=== PATIENT | female | born 1995 | race Caucasian/White ===

== ENCOUNTER 2017-05-17 08:11 | Inpatient (IN) ==
[2017-05-17] MEDS ORDERED: CEFAZOLIN PREMIX (MC ONLY) 2 GM/50 ML BAG IV ONE (08:37)
[2017-05-17] MEDS ORDERED: CITRIC ACID/SODIUM CITRATE 30ml PO ONE (08:37)
[2017-05-17] MEDS ORDERED: FAMOTIDINE PB 20 MG/50 ML BAG IV ONE (08:37)
[2017-05-17] MEDS ORDERED: LR 1,000 ML IV SCH (08:42)
[2017-05-17 08:55] VITALS: BMI 41.8
[2017-05-17] MEDS ORDERED: NOZIN NASAL SWAB NAS ONE (09:33)
[2017-05-17] MEDS: CEFAZOLIN 1 G INJECTION IVP ONE ×3 (09:39→13:26)
--- NOTE | 2017-05-17 09:49 | Anesthesia Preoperative Report ---
Anesthesia Preoperative Record - Date and Time Date: 05/17/17 Preoperative Diagnosis: Repeat C Section previous , Proposed Procedure: repeat csection NPO Since Date: 05/16/17 NPO Since Time: 23:00 Allergies/Adverse Reactions: Allergies Allergy/AdvReac Type Severity Reaction Status Date / Time No Known Drug Allergies Allergy Unknown Verified 05/05/12 12:34 - Vital Signs Height and Weight: Height 1.73 m Weight 124.738 kg Body Mass Index 41.8 - Medications Inpatient Medications: Current Medications Isopropyl Alcohol (Nozin Nasal Swab) 1 each FREEMAN 0600,1400,2200 ANA LAURA Home Medications: Home Medications Medication Instructions Recorded Confirmed Type Prenat 115/Iron Fum/Folic/Dss 1 tab PO DAILY 05/16/17 05/16/17 History [ 19 Tablet] - Medical History Cardiovascular: Reports: Hypertension (preclampsia ), Other (echocardiogram no problems, 4 months ago, due to and htn ) Gastrointestional: Reports: Morbid Obesity Other History: Reports: Now - Surgical History Reproductive Surgery/Treatment: Reports: Section Anesthesia Reactions: None Hx Family Anesthesia Reaction: No - Social History Smoking Status: Never smoker - Pertinent Findings Laboratory: CBC and BMP 05/17/17 09:09 EKG Rhythm: Normal Sinus Rhythm - Physical Exam Respiratory Exam: Present: lungs clear, bilateral breath sounds equal Cardiovascular Exam: Present: regular rate and rhythm, no murmur - Airway Assessment Mallampati Score: II TMD: 3 Fingerbreadths Neck Extension: good Overall Assessment: may be difficult mask vent, may be difficult intubation - ASA ASA Score: 3 - Plan Regional/Trunk Block: Spinal - Discussion Discussion: Discussed risks/options/alternatives of anesthesia and questions answered. Patient consents. Nursing pain assessment noted. Attestation Statement: Prior to the delivery of any anesthetic medication, I examined the patient, developed the plan, obtained the patient's consent and discussed the risk and benefits of the procedure with the patient/guardian.
[2017-05-17] MEDS ORDERED: MORPHINE SULFATE PF 5mg/10ml INJ (Duramorph) ONE (09:58)
[2017-05-17] MEDS ORDERED: OXYTOCIN 10 UNIT/ML INJECTION ONE ×2 (09:58→10:53)
[2017-05-17] MEDS ORDERED: EPHEDRINE 50mg/ml INJECTION ONE (09:58)
[2017-05-17] MEDS ORDERED: FentaNYL 100 MCG/2 ML INJECTION ONE (09:58)
[2017-05-17] MEDS ORDERED: SALINE FLUSH 10ml SYRINGE ONE (10:00)
[2017-05-17] MEDS: LR 1,000 ML IV SCH ×2 (10:35→10:51)
[2017-05-17] MEDS: OXYTOCIN DRIP 30 UNIT/500 ML ML IV SCH ×2 (10:38→13:30)
[2017-05-17] MEDS ORDERED: NALOXONE 2 MG/2 ML INJECTION PFS IVP PRN (10:46)
[2017-05-17] MEDS ORDERED: ONDANSETRON 4 MG/2 ML INJECTION ONE (10:51)
[2017-05-17] MEDS ORDERED: METOCLOPRAMIDE 10mg/2ml INJECTION ONE (10:52)
[2017-05-17] MEDS ORDERED: HYDROCORTISONE 2.5% CREAM 30gm RECTALLY PRN (11:34)
[2017-05-17] MEDS ORDERED: SALINE FLUSH 10ml SYRINGE IVF PRN (11:34)
[2017-05-17] MEDS ORDERED: ACETAMINOPHEN 500 MG TABLET PO PRN (11:34)
[2017-05-17] MEDS ORDERED: SIMETHICONE 80 MG CHEWABLE TABLET PO PRN (11:34)
[2017-05-17] MEDS ORDERED: OXYTOCIN DRIP 30 UNIT/500 ML ML IV SCH (11:34)
[2017-05-17] MEDS ORDERED: CALCIUM CARBONATE Chewable 500mg TABLET PO PRN (11:34)
[2017-05-17] MEDS: D5LR 1,000 ML IV SCH (11:51)
[2017-05-17] MEDS: SIMETHICONE 80 MG CHEWABLE TABLET PO SCH ×3 (13:09→23:49)
[2017-05-17] MEDS: IBUPROFEN 800 MG TABLET PO PRN ×2 (13:39→23:49)
[2017-05-17] MEDS: HYDROCODONE/APAP 5mg/325mg TABLET PO PRN ×2 (13:40→23:49)
[2017-05-17] MEDS ORDERED: NOZIN NASAL SWAB NAS SCH (14:00)
[2017-05-17] MEDS: DiphenhydrAMINE 25 MG CAPSULE PO PRN ×2 (16:59→23:48)
[2017-05-18] MEDS: HYDROCODONE/APAP 5mg/325mg TABLET PO PRN ×3 (04:15→16:32)
[2017-05-18] MEDS: DiphenhydrAMINE 25 MG CAPSULE PO PRN (06:18)
[2017-05-18] MEDS: D5LR 1,000 ML IV SCH ×2 (06:19→09:09)
[2017-05-18] MEDS: IBUPROFEN 800 MG TABLET PO PRN ×2 (08:03→16:32)
[2017-05-18] MEDS: DOCUSATE CALCIUM 240 MG CAPSULE PO SCH (08:04)
[2017-05-18] MEDS: SIMETHICONE 80 MG CHEWABLE TABLET PO SCH ×5 (08:05→22:30)
--- NOTE | 2017-05-18 11:14 | Operative Note ---
DATE OF OPERATION 05/17/2017 PREOPERATIVE DIAGNOSES 1. Term , previous . 2. Mild preeclampsia with proteinuria. POSTOPERATIVE DIAGNOSES 1. Term , previous - delivered. 2. Mild preeclampsia with proteinuria. PROCEDURE Repeat low transverse section. SURGEON Dr. Osorio. TRANSMISSION SYSTEMS OPERATOR Kota Goncalves, DO ANESTHESIA Spinal epidural. ANESTHESIOLOGIST Cecil Miles CRNA EBL 800 mL DESCRIPTION OF PROCEDURE Ms. Allison was brought to the OR and given regional analgesia to good effect. She was placed on the OR table in supine position with left lateral displacement. A Jean catheter was placed to dependent drain. The abdomen was prepped and draped in usual sterile fashion. A Pfannenstiel skin incision was made through the patient's prior scar and carried down to fascia. Fascia was incised transversely. Fascia was then bluntly and sharply dissected free of rectus muscles. The rectus muscles were bluntly divided. Peritoneum was tented up and entered sharply. This was extended vertically. The bladder blade was then inserted. Vesicouterine fold of peritoneum was tented up and incised transversely and a bladder flap was bluntly created. The bladder blade was reinserted to protect the bladder. A low-transverse uterine incision was made with a sharp knife. There was copious clear amniotic fluid. Baby was a bit of a tight, snug fit but was delivered the vertex OA presentation. There was a loose nuchal cord x 1 that was reduced prior to delivery of the head. Baby was bulb suctioned on the abdomen. Cord was doubly clamped and cut. Baby was given to Dr. Jarrett and his team for care. This was a liveborn female with Apgars of 8/9/9, weighing 7 pounds, 12.5 ounces. The placenta was then expressed intact. It had a normal configuration and normal-appearing three- vessel cord. The uterine cavity was swept clear of membranes and the uterus exteriorized. Myometrial incision was then reapproximated with a running locking 0- Monocryl. We observed carefully for hemostasis. This was under good control. We inspected the uterus, tubes and ovary and returned them to the abdominal cavity. We again inspected our incision and it remained under hemostatic control as did the rest of the surgery. We then reapproximated peritoneum with running nonlocking 2-0 Vicryl. Fascia was reapproximated with running nonlocking 0-Vicryl. Skin edges were reapproximated with subcuticular style 3-0 undyed Vicryl. The wounds were dressed with Steri-Strips and sterile dressing. Counts were correct postoperatively x 2. The urine remained clear and free-flowing throughout the procedure. MTDD
--- NOTE | 2017-05-18 13:11 | OB/GYN Progress Note ---
OB - PN: A/P - Plan Plan: routine postop care Comments: RPOC plan dismissal POD #2-3 - Time Spent With Patient Total time spent is greater than 50% in coordination of care (as documented) at patient's floor/unit and/or counseling patient: less than 15 minutes OB - PN: Subj Patient comments: no complaints, pain well controlled [place] baby status: doing well, nursing well, bottle feeding well OB - PN: Obj Exam Vital signs: Temperature 97.6 F 05/18/17 11:53 Pulse Rate 94 05/18/17 11:53 Respiratory Rate 16 05/18/17 11:53 Blood Pressure 137/76 05/18/17 11:53 Pulse Oximetry 96 05/18/17 11:53 Oxygen Delivery Method Room Air - Constitutional no acute distress - Routine Abdominal Exam Present: soft, non tender Fundus: Present: firm - Wound Management Method: suture Examination: Present: clean, dry, intact - Urinary Catheter Management 2-way Urethral Cath placed during this visit: yes, but has since been removed by the nurse Urethral indwelling: No Insertion date: 05/17/17 Insertion time: 10:21 Removal date: 05/18/17 Removal time: 00:05 OB - PN: Obj Data - Labs CBC & Chem 7: 05/18/17 07:44 Labs: Laboratory Results - last 24 hr 05/18/17 07:44 WBC 10.7 RBC 3.47 L Hgb 9.4 L D Hct 30.3 L D MCV 87.3 MCH 27.1 MCHC 31.0 RDW Std Deviation 46.6 Plt Count 236 MPV 11.4 - ABG Interpretation Interpretation: normal
[2017-05-19] MEDS: HYDROCODONE/APAP 5mg/325mg TABLET PO PRN (09:50)
[2017-05-19] MEDS: SIMETHICONE 80 MG CHEWABLE TABLET PO SCH (09:50)
[2017-05-19] MEDS: DOCUSATE CALCIUM 240 MG CAPSULE PO SCH (09:50)
--- NOTE | 2017-05-19 10:59 | OB/GYN Progress Note ---
OB-PP Progress Note - General PPD2 POD:: POD2 - Subjective Date: 05/19/17 Lochia: Minimal Pain: contolled Voiding: voiding Nausea or Vomiting Present: No - Objective Vital Signs: Last Vital Signs Temp 98.8 F 05/19/17 07:06 Pulse 73 05/19/17 07:06 Resp 18 05/19/17 07:06 BP 145/75 H 05/19/17 07:06 Pulse Ox 99 05/19/17 07:06 General: alert and oriented Respiratory: non-labored Abdomen: fundus firm, non-tender Incision: normal, dry, intact Extremities: non-tender Edema: none - Assessment Assessment: Repeat C/S, Gestational HTN - Plan Plan: routine care, discharge home
--- NOTE | 2017-05-19 11:03 | Discharge Instructions ---
Discharge Plan - Med Rec/Dispo Prescriptions: New Ibuprofen [Motrin] 800 mg PO Q8H PRN #30 tablet PRN Reason: Pain Hydrocodone/APAP 5/325 [Tyrone 5/325] 1 - 2 tab PO Q4H PRN #30 tablet PRN Reason: Pain Continue Prenat 115/Iron Fum/Folic/Dss [ 19 Tablet] 1 tab PO DAILY - Disposition 01 Discharged Home, Self-Care
[2017-05-19 12:12] VITALS: BP 141/75; PULSE 81; RESP 16; TEMP 97.3; O2SAT 98
== END 2017-05-19 14:15 | disposition home or self-care (01) | DRG 766 ==
LOC: MC 08:11
PROVIDERS: ADMIT Obstetrics & Gynecology; ATTEND Obstetrics & Gynecology